=== PATIENT | male | born 1990 | race Caucasian/White ===

== ENCOUNTER 2017-09-06 02:08 | Emergency (ER) | payer OTHER ==
[2017-09-06 06:42] LABS: URINE BLOOD (Dip) POC 2+ (NEGATIVE); URINE GLUCOSE (Dip) POC Negative (NEGATIVE); URINE KETONES (Dip) POC Negative (NEGATIVE); URINE LEUKOCYTE EST (Dip) POC 3+ (NEGATIVE); URINE NITRITE (Dip) POC Negative (NEGATIVE); URINE TOTAL PROTEIN POC Negative (NEGATIVE)
[2017-09-06 06:42] LABS: URINE PH (Dip) POC 6.5 (5.0-8.5)
[2017-09-06] MEDS: AZITHROMYCIN 250 MG TAB PO (07:11)
[2017-09-06] MEDS: CEFTRIAXONE 250 MG INJ IM (07:12)
[2017-09-06] MEDS: LIDOCAINE 1% (MDV) 20 ML INJ SC (07:15)
== END 2017-09-06 07:32 | disposition home or self-care (01) ==
LOC: FTE 02:08
DX: R31.9 Hematuria, unspecified (principal)
CPT/HCPCS: 81003; 87086; 87591; 96372; 99284-25